=== PATIENT | female | born 1935 | race Caucasian/White ===

== ENCOUNTER 2016-09-08 14:31 | Inpatient (IN) ==
[2016-09-08] MEDS ORDERED: SODIUM CHLORIDE 0.9% 500 ML IV STA (14:58)
--- NOTE | 2016-09-08 15:13 | CT Report ---
CT brain Indication: Altered mental status Comparison: 08 September 2014 Technique: Axial CT imaging of the brain is performed without contrast with 3 mm increments. Findings: No evidence of hemorrhage, mass mass effect midline shift or acute infarct seen. There is moderate diffuse cerebral atrophy. There are areas of decreased density seen within the white matter. Otherwise the brain parenchyma attenuation and differentiation appears within normal limits. The ventricles and cisterns are normal in caliber. No cranial or skull base abnormality is identified. Impression: No evidence of acute process or interval change. This CT exam was performed using one or more the following dose reduction techniques: Automated exposure control, adjustment of the MA and/or KV according to patient size, or use of iterative reconstruction technique. PROCEDURE INTERPRETED AT [facility] DEPARTMENT OF RADIOLOGY Final Report Signed by: Dr. Krystian Fuentes
--- NOTE | 2016-09-08 15:17 | Emergency Department Note ---
Julieth Faulkner Mantricia, am scribing for, and in the presence of, Al Osborn MD 14:56. Irena Faulkner James D, MD, personally performed the services described in this documentation, ascribed by Pedro Clancy in my presence, and it is both accurate and complete 515 . Arrival - Arrival Chief Complaint: Weakness Stated Complaint: confusion, weakness, excess sleepiness ED Nursing Triage Note: c/o intermittent confusion and generalized weakness- onset two days ago. Mode of Arrival: Wheelchair Limitations: No Limitations Source: Patient - History of Present Illness HPI Narrative: Pt is an 80 y/o white female arriving to ED by EMS with c/o weakness that onset 2 days ago. Pt reports that she fell asleep at the table yesterday. She c/o lethargy, sleepiness, and confusion. Daughter reports that pt has stated that "she is going to see Yosef." Pt has a PMHx of Parkinson's disease and recurring UTIs. No other complaints were reported to ED. Onset (ago): day(s) Consistency: constant Severity: mild Date of Last Menstrual Period: menopause Allergies/Adverse Reactions: Allergies Allergy/AdvReac Type Severity Reaction Status Date / Time ciprofloxacin [From Cipro] Allergy Unknown/Unable Verified 12/21/14 22:37 to obtain escitalopram [From Lexapro] AdvReac RASH Verified 12/21/14 22:37 Home Medications: Home Medications Medication Instructions Recorded Confirmed Type Digoxin Tab [Lanoxin Tab] 0[place] [address]/07/14 09/08/16 History Flecainide [Tambocor] 50 mg PO BID 09/07/14 09/08/16 History Meloxicam [Mobic] 7.5 [place] 79909/07/14 09/08/16 History Tamoxifen Citrate [place] [address]/07/14 09/08/16 History Carbidopa/Levodopa 25-100 [Sinemet 2 tablet PO 199909/08/16 09/08/16 History 25-100] Carbidopa/Levodopa [Rytary 1 capsule PO 5X DAILY 09/08/16 09/08/16 History 23.75-95 mg] Rotigotine [Neupro 6 mg/24 hr 1 patch TOP 79909/08/16 09/08/16 History Patch] prednisoLONE AC 1% OPH SUSP [Pred 1 drop BOTH EYES QOTHER DAY 09/08/16 09/08/16 History Forte] Review of System - Review of System 12 point system: reviewed and no additional remarkable complaints except as stated - Review of System Constitutional: Present: weakness. Absent: chills, diaphoresis, fever Head/Ears/Nose/Throat: Absent: earache Respiratory: Absent: cough Gastrointestinal: Absent: abdominal pain, nausea, vomiting, diarrhea Musculoskeletal: Absent: arm pain, back pain, leg pain, neck pain Neurological: Present: confusion. Absent: headache Medical,Surgical,& Family Hx - Medical History Cardio: History of: Cardiac Dysrhythmia (sick sinus syndrome and atrial fibrillation), Hypertension, Pacemaker Psychological: History of: Anxiety Disorders Neurology: History of: Parkinson's Disease (2007) No history of: Brain Aneurysm, Cerebral Hemorrhage, Cerebrovascular Accident , Cerebral Palsy, Dementia, Migraine, Multiple Sclerosis, Peripheral Neuropathy , Seizures, TIA, Vertigo, Neurologocal Cancer HEENT: History of: Eye Problem Gastrointestinal: History of: GI Problems (constipation) No history of: Clostridium Difficile, Crohn's Disease Musculoskeletal: History of: Musculoskeletal Problems (arthritis) Hematology: Comment Only: Bleeding Problems (bruises easy) Reproductive: History of: Breast Cancer (1999) - Surgical History Cardiac Surgeries: Sugical HX of: Cardiac Surgery (pacemaker placed 1987) Thoracic Surgeries: Patient denies;: Lobectomy Neurologic Surgeries: Patient denies: Brain Aneurysm, Cerebral Hemorrhage, Neurologic Surgery HEENT Surgeries: Surgical HX of: Eye Surgery (corneal transplants) Abdominal Surgeries: Surgical HX of: Colonoscopy Reproductive Surgeries: Surgical HX of;: Breast Surgery (left lumpectomy 2010) Orthopedic Surgeries: Surgical HX of;: Orthopedic Surgery (left knee repair) - Family History Family History: Reports;: Family Cancer (sister x's 2- breast), Family Diabetes (mother), Family Heart Disease (father, sister, brother), Family Hypertension ( mother), Family Psychiatric Problems (brother- schizophrenia) Denies;: Family Anesthesia Reaction, Family Stroke - Social History Smoking Status: Former smoker Frequency of Alcohol Use: None Type of Drug Use: None Exam Physical Examination: ADULT: GENERAL: This is a well-nourished, well-developed white female in no apparent distress. VITAL SIGNS: Reviewed HEENT: Head is normocephalic and atraumatic. Pupils are equally round and reactive to light. Extraocular movement are intact. Oropharynx is benign with moist mucous membranes. NECK: Neck is soft and supple without tenderness. There are no masses. There is no lymphadenopathy. LUNGS: Lungs are clear to auscultation bilaterally. Chest rises symmetrically. There is no chest wall tenderness. CV: Heart is regular rate and rhythm without murmurs, rubs, or gallops. ABDOMEN: Abdomen is soft, non-tender to palpation. There are no abnormal masses palpated. There is no organomegaly. Bowel sounds are present and active. SKIN: Skin is warm and dry. No rash. EXTREMITIES: Patient has full range of motion without tenderness. There is no pedal edema. NEUROLOGIC: Awake, alert, and oriented x4. Masked facies. Cranial nerves II through XII are grossly intact. There are no motorsensory deficits. Some cogwheeling is present. PSYCHIATRIC: Flat affect. Normal mood. Vital Signs: Vital Signs Temperature 98.2 F 09/08/16 15:00 Pulse Rate 74 09/08/16 15:30 Respiratory Rate 16 09/08/16 15:30 Blood Pressure 155/82 09/08/16 15:30 O2 Sat by Pulse Oximetry 100 09/08/16 15:30 Course Course Narrative: Patient was given Rocephin IV in the emergency department. - Consultations Consultation #1: Discussed with hospitalist. Patient will be admitted to their service. Time: 16:42 Results - Labs CBC & BMP: 09/08/16 15:33 09/08/16 15:33 Lab Results: I have reviewed the patients labs Labs: Laboratory Tests 09/08/16 15:36 Urine pH 6.0 Ur Specific [place] 1.011 Urine Leukocytes Moderate H Urine RBC 3 Urine WBC 39 - Diagnostic Findings Procedure: Chest x-ray: image reviewed by me (Dual-chamber pacemaker in place. No cardiomegaly, positive scoliosis, no infiltrate.), CT: image reviewed by me ( CT head: No acute intracranial lesion or hemorrhage. Cerebral atrophy is present.) Disposition Clinical Impression: Parkinsons disease, Altered mental status, Urinary tract infection Case discussed with: patient, patient's family Disposition: Still a Patient Condition: Stable Time of Disposition: 16:39
--- NOTE | 2016-09-08 15:26 | XRay Report ---
XR chest 2V Indication: Altered mental status Comparison: 21 December 2014 Findings: The heart and mediastinum are normal in size and configuration. Pacemaker device is unchanged in position. The pulmonary vascularity is normal in caliber. Lung volumes are increased with prominent bronchial markings. No lung infiltrates, effusions, pneumothorax or other abnormality is demonstrated. Impression: Chronic lung changes. No acute process or significant change. PROCEDURE INTERPRETED AT [facility] DEPARTMENT OF RADIOLOGY Final Report Signed by: Dr. Krystian Fuentes
[2016-09-08 15:46] LABS: Basophils % 0.3 % (0.0-0.8); Eosinophils # 0.1 10*3/uL (0.0-0.87); Eosinophils % 0.7 % (0.00-10.9); Hematocrit 37.1 VOL% (35.7-47.0); Hemoglobin 12.3 GM/DL (12.0-16.0); Immature Granulocytes % 0.3 %; Immature Granulocytes Absolute 0.02 #; Lymphocytes % 14.9 % (21.3-54.2); Mean Corpuscular HGB Conc 33.2 GM/DL (32-36); Mean Corpuscular Hemoglobin 31 PG (27-34); Mean Corpuscular Volume 93.9 FL (87-102); Mean Platelet Volume 11.6 FL (9.6-12.0); Monocytes # 0.7 10*3/uL (0.11-0.8); Monocytes % 9.5 % (1.7-12.7); Neutrophils # 5.1 10*3/uL (1.4-7.4); Neutrophils % 74.3 % (38.7-73.9); Platelet Count 187 T/CUMM (130-400); Red Blood Count 3.95 MC/CUMM (3.8-5.5); Red Cell Distribution Width 12.9 % (9.3-17.3); White Blood Count 6.9 T/CUMM (4-12)
[2016-09-08 15:56] LABS: INR 1.1; PT Patient Result 11.4 SECS; Partial Thromboplastin Time 25.6 SECS (0-40)
[2016-09-08 16:12] LABS: Ammonia < 10 UMOL/L (11-32)
[2016-09-08 16:13] LABS: Apearance,Urine Slightly Hazy (Clear); Bacteria,Urine Occasional /HPF (Few); Bilirubin,Urine Negative (Negative); Blood, Urine Negative (Negative); Glucose,Urine (UA) Negative (Negative); Ketones,Urine 5 mg/dL (Negative); Mucus,Urine Occasional /LPF (Occasional); Nitrite,Urine Negative (Negative); Protein,Urine Negative; RBC,Urine 3 /HPF (0-4); Squamous Epithelial Cell,Urine Occasional /HPF (0-10); Urine Color Yellow (Yellow); Urine Specific Gravity 1.011 (1.001-1.035); Urine Urobilinogen < 2.0 EU/DL (0.2-1.0); WBC,Urine 39 /HPF (0-6)
[2016-09-08 16:21] LABS: Alanine Aminotransferase < 9 U/L (13-56); Albumin 3.5 G/DL (3.4-5.0); Alkaline Phosphatase 39 U/L (45-117); Aspartate Amino Transferase 18 U/L (0-37); Bilirubin,Total < 0.39 MG/DL (0.2-1.0); Blood Urea Nitrogen 25 MG/DL (7-18); Calcium 8.4 MG/DL (8.5-10.1); Glucose 106 MG/DL (74-106); Osmolality,Calculated 280.5 MOS/KG (273-304); Potassium 4.6 MMOL/L (3.5-5.1); Sodium 139 MMOL/L (136-145); Total Protein 7.2 G/DL (6.4-8.3)
[2016-09-08] MEDS ORDERED: cefTRIAXone 1,000 MG in SODIUM CHLORIDE 0.9% 100 ML IV STA (16:39)
[2016-09-08] MEDS ORDERED: cefTRIAXone 1,000 MG VIAL ONE ×2 (16:52→18:03)
--- NOTE | 2016-09-08 17:30 | Hospitalist History & Physical ---
Assessment and Plan - Time spent with patient Time spent with patient: Greater than 30 minutes (1) Altered mental status Status: Acute Assessment and plan: Patient answered questions appropriately. Family said she gets confused during conversations. Patient is alert and oriented to person and place. Head CT in the ER shows no evidence of acute process or interval change. Will monitor closely. Will admit and repeat labs in the morning. Current Visit: Yes (2) Urinary tract infection Status: Acute Assessment and plan: 09/08/16 BUN 25 and creatinine 1.00; URINE: show moderate leukocytes, WBC 39. Will start IV fluids and start antibiotic therapy for UTI. Will repeat labs in the a.m. Current Visit: Yes (3) Weakness Status: Acute Assessment and plan: 09/08/16 Patient has history of Parkinsons disease. Family feels she has been a little more sluggish today but her weakness has not changed significantly. Will monitor closely. Will consult PT and OT for evaluation. Current Visit: No History of Present Illness Chief complaint: weakness/confusion/UTI History of present illness: Ms. Huntley is a 80 year old white female presented to [facility] ED for c/ o confusion x 2days, and not feeling "right". PMHx: Parkinsons disease, Sick Sinus syndrome and atrial fibrillation, Pacemaker, Hypertension, anxiety disorder, arthritis. Patient verbalized "I just have not felt good and I don't feel like myself". Family reports for the past 2 days patient is confused and in conversation she says things that do not make sense, also the patient has been crying a lot and keeps telling them "something is wrong but I'm not sure what's wrong". Family reports she is slightly more sluggish than normal today but she is alwasy generally weak related to her Parkinsons disease. After discussion with Dr Osborn in the ED and Dr Kline with hospital medicine, it was agreed to admit patient for further evaluation. Home medications will be reviewed and reconciliation to follow. Home Medications Medication Instructions Recorded Confirmed Type Digoxin Tab [Lanoxin Tab] 0.125 mg PO 0800 09/07/14 09/08/16 History Flecainide [Tambocor] 50 mg PO BID 09/07/14 09/08/16 History Meloxicam [Mobic] 7.5 [place] 79909/07/14 09/08/16 History Tamoxifen Citrate [place] 79909/07/14 09/08/16 History Carbidopa/Levodopa 25-100 [Sinemet 2 tablet PO 199909/08/16 09/08/16 History 25-100] Carbidopa/Levodopa [Rytary 1 capsule PO 5X DAILY 09/08/16 09/08/16 History 23.75-95 mg] Rotigotine [Neupro 6 mg/24 hr 1 patch TOP 79909/08/16 09/08/16 History Patch] prednisoLONE AC 1% OPH SUSP [Pred 1 drop BOTH EYES QOTHER DAY 09/08/16 09/08/16 History Forte] Allergies Allergy/AdvReac Type Severity Reaction Status Date / Time ciprofloxacin [From Cipro] Allergy Unknown/Unable Verified 12/21/14 22:37 to obtain escitalopram [From Lexapro] AdvReac RASH Verified 12/21/14 22:37 Medical,Surgical,& Family Hx - Medical History Cardio: History of: Cardiac Dysrhythmia (sick sinus syndrome and atrial fibrillation), Hypertension, Pacemaker Psychological: History of: Anxiety Disorders Neurology: History of: Parkinson's Disease (2007) No history of: Brain Aneurysm, Cerebral Hemorrhage, Cerebrovascular Accident , Cerebral Palsy, Dementia, Migraine, Multiple Sclerosis, Peripheral Neuropathy , Seizures, TIA, Vertigo, Neurologocal Cancer HEENT: History of: Eye Problem Gastrointestinal: History of: GI Problems (constipation) No history of: Clostridium Difficile, Crohn's Disease Musculoskeletal: History of: Musculoskeletal Problems (arthritis) Hematology: Comment Only: Bleeding Problems (bruises easy) Reproductive: History of: Breast Cancer (1999) - Surgical History Cardiac Surgeries: Sugical HX of: Cardiac Surgery (pacemaker placed 1987) Thoracic Surgeries: Patient denies;: Lobectomy Neurologic Surgeries: Patient denies: Brain Aneurysm, Cerebral Hemorrhage, Neurologic Surgery HEENT Surgeries: Surgical HX of: Eye Surgery (corneal transplants) Abdominal Surgeries: Surgical HX of: Colonoscopy Reproductive Surgeries: Surgical HX of;: Breast Surgery (left lumpectomy 2010) Orthopedic Surgeries: Surgical HX of;: Orthopedic Surgery (left knee repair) - Family History Family History: Reports;: Family Cancer (sister x's 2- breast), Family Diabetes (mother), Family Heart Disease (father, sister, brother), Family Hypertension ( mother), Family Psychiatric Problems (brother- schizophrenia) Denies;: Family Anesthesia Reaction, Family Stroke - Social History Smoking Status: Former smoker Frequency of Alcohol Use: None Type of Drug Use: None Functional capacity: uses cane/walker Review of systems: ROS sompleted and pertinent positives and negatives in HPI. Exam - Constitutional Vitals: Period Temp Pulse Resp BP Sys/Galeas Pulse Ox Last 24 Hr 98.2 F-98.2 F 74-76 14-18 122-155/67-82 98-100 General appearance: normal weight - Head Head exam: Present: normal inspection - Eye Eye exam: Present: EOMI - Neck Neck exam: Present: normal inspection - Respiratory Respiratory exam: Present: clear to auscultation bilaterally. Absent: wheezes - Cardiovascular Cardiovascular exam: Present: regular rate and rhythm - GI/Abdominal GI/Abdominal exam: Present: normal bowel sounds, soft. Absent: tenderness, rebound - Extremities Exam Extremities exam: Present: full ROM. Absent: edema - Neurological Exam Neurological exam: Present: alert, oriented X3, CN II-XII intact - Psychiatric Psychiatric exam: Present: normal mood, flat affect. Absent: agitated, anxious - Skin Skin exam: Present: normal color, warm, dry Results - Labs CBC & BMP: 09/08/16 15:33 09/08/16 15:33 Lab Results: I have reviewed the past 24 hour labs - Diagnostic Findings Procedure: Chest x-ray: report reviewed by me (chronic lung changes, no acute process or significant change), CT: report reviewed by me (head: no evidence of acute process or interval change)
[2016-09-08] MEDS ORDERED: ACETAMINOPHEN 325 MG TABLET PO PRN (18:08)
[2016-09-08] MEDS ORDERED: ONDANSETRON 4 MG/2 ML VIAL IV PRN (18:08)
[2016-09-08] MEDS ORDERED: BISACODYL 5 MG TABLET PO PRN (18:08)
[2016-09-08] MEDS: SODIUM CHLORIDE 0.9% 1,000 ML IV SCH (21:19)
[2016-09-08] MEDS ORDERED: CARBIDOPA PO SCH (22:00)
[2016-09-08] MEDS ORDERED: LEVODOPA PO SCH (22:00)
[2016-09-08] MEDS: FLECAINIDE 50 MG TABLET PO SCH (22:21)
[2016-09-09] MEDS: SODIUM CHLORIDE 0.9% 1,000 ML IV SCH ×3 (05:07→20:22)
[2016-09-09 06:03] LABS: Basophils % 0.5 % (0.0-0.8); Eosinophils # 0.1 10*3/uL (0.0-0.87); Eosinophils % 2.1 % (0.00-10.9); Hemoglobin 10.9 GM/DL (12.0-16.0); Immature Granulocytes % 0.5 %; Immature Granulocytes Absolute 0.03 #; Lymphocytes # 1.2 10*3/uL (1.4-4.0); Lymphocytes % 21.2 % (21.3-54.2); Mean Corpuscular Hemoglobin 31 PG (27-34); Mean Corpuscular Volume 94.3 FL (87-102); Mean Platelet Volume 11.8 FL (9.6-12.0); Monocytes # 0.6 10*3/uL (0.11-0.8); Monocytes % 10.5 % (1.7-12.7); Neutrophils # 3.8 10*3/uL (1.4-7.4); Neutrophils % 65.2 % (38.7-73.9); Platelet Count 150 T/CUMM (130-400); Red Cell Distribution Width 12.9 % (9.3-17.3); White Blood Count 5.8 T/CUMM (4-12)
[2016-09-09 06:36] LABS: Calcium 7.6 MG/DL (8.5-10.1); Magnesium 2.3 MG/DL (1.8-2.4); Osmolality,Calculated 280.3 MOS/KG (273-304); Potassium 4.1 MMOL/L (3.5-5.1)
[2016-09-09] MEDS ORDERED: PANTOPRAZOLE 40 MG TABLET PO SCH (09:00)
[2016-09-09] MEDS ORDERED: TAMOXIFEN 10 MG TABLET PO SCH (09:00)
[2016-09-09] MEDS: FLECAINIDE 50 MG TABLET PO SCH (09:13)
[2016-09-09] MEDS ORDERED: DIGOXIN 0.125 MG TABLET PO SCH (13:00)
--- NOTE | 2016-09-09 14:38 | Discharge Summary ---
Hospital Course - Hospital Course Hospital Course: The patient was admitted to the hospital due to dysphoria and change of personality. The patient had been noted to have more sleeping than usual. Her neurologist at [facility] had recommended evaluation for infection. The patient was admitted to the hospital. Urinalysis reveals some pyuria and we treated it with Rocephin. The patient will be discharged home with Keflex. The patient will return to [facility] and resume taking her usual neurologic medications. The patient will have reevaluation with her neurologist at [facility] next week. I reviewed the patient's treatment plan and plan of care with her daughter at the bedside. The patient appears more cheerful today and her daughter states she seems back to baseline. The patient was screened for tobacco and found to be a never smoker. I gave her 4 minutes encouragement of tobacco avoidance. Discharge planning which included evaluation the patient and patient teaching and conference with family required 36 minutes. - Time spent with patient Time with patient DS: Greater than 30 minutes Diagnosis - Discharge Diagnosis (1) Parkinsons disease Status: Chronic (2) Urinary tract infection Status: Resolved Discharge Plan - Discharge Data Disposition: Disch To Home/Self Care Condition at Discharge: Stable Discharge Diet: advance to your usual diet Activity: resume usual activities as tolerated - Discharge Medications New cephALEXin [Keflex] 250 mg PO TID #12 capsule Continue Flecainide [Tambocor] 50 mg PO BID Digoxin Tab [Lanoxin Tab] 0.125 mg PO 0800 Tamoxifen Citrate 20 mg PO 0800 Meloxicam [Mobic] 7.5 mg PO 0800 Carbidopa/Levodopa 25-100 [Sinemet 25-100] 2 tablet PO 2000 prednisoLONE AC 1% OPH SUSP [Pred Forte] 1 drop BOTH EYES QOTHER DAY Carbidopa/Levodopa [Rytary 23.75-95 mg] 1 capsule PO 5X DAILY Rotigotine [Neupro 6 mg/24 hr Patch] 1 patch TOP 0800 - Follow Up or Referral - Forms/Instructions Exam - Constitutional Vitals: Period Temp Pulse Resp BP Sys/Galeas Pulse Ox Last 24 Hr 97.1 F-98.2 F 68-80 14-18 122-188/67-103 92-100 Discharge Results Procedures and tests throughout hospitalization: Pending Orders 09/08/16 Urine Culture Routine Labs on day of discharge: Labs from last 24 hours 0709/09/16 09/08/16 05:03 05:03 15:36 WBC 5.8 RBC 3.50 L Hgb 10.9 L Hct 33.0 L MCV 94.3 MCH 31 MCHC 33.0 RDW 12.9 Plt Count 150 MPV 11.8 Neut % (Auto) 65.2 Lymph % (Auto) 21.2 L Riley % (Auto) 10.5 Eos % (Auto) 2.1 Baso % (Auto) 0.5 Neut # (Auto) 3.8 Lymph # (Auto) 1.2 L Riley # (Auto) 0.6 Eos # (Auto) 0.1 Baso # (Auto) 0.0 Immature Gran % 0.5 Nucleated RBC % 0.0 Immature Gran # 0.03 Nucleated RBCs # 0.00 Immature Plt Fraction 0.0 INR PT Patient/Control Mix Circ Anticoag PTT Sodium 141 Potassium 4.1 Chloride 107 Carbon Dioxide 29 Anion Gap 9.1 BUN 16 Creatinine 0.60 GFR Calculation 75 BUN/Creatinine Ratio 26.00 H Glucose 84 Calculated Osmolality 280.3 Calcium 7.6 L Magnesium 2.3 Total Bilirubin AST ALT Alkaline Phosphatase Ammonia Total Protein Albumin Globulin Albumin/Globulin Ratio Urine Color Yellow Urine Appearance Slightly hazy Urine pH 6.0 Ur Specific [employer] [place] 1.011 Urine Protein Negative Urine Glucose (UA) Negative Urine Ketones 5 Urine Blood Negative Urine Nitrate Negative Urine Bilirubin Negative Urine Urobilinogen < 2.0 H Urine Leukocytes Moderate H Urine RBC 3 Urine WBC 39 Ur Squamous Epith Cells Occasional Urine Bacteria Occasional Urine Mucus Occasional Ur Culture Indicated? Results to follow Digoxin Serum Alcohol 09/08/16 09/08/16 09/08/16 15:33 15:33 15:33 WBC RBC Hgb Hct MCV MCH MCHC RDW Plt Count MPV Neut % (Auto) Lymph % (Auto) Riley % (Auto) Eos % (Auto) Baso % (Auto) Neut # (Auto) Lymph # (Auto) Riley # (Auto) Eos # (Auto) Baso # (Auto) Immature Gran % Nucleated RBC % Immature Gran # Nucleated RBCs # Immature Plt Fraction INR 1.1 PT Patient/Control Mix 11.4 Circ Anticoag PTT 25.6 Sodium 139 Potassium 4.6 Chloride 103 Carbon Dioxide 30 Anion Gap 10.6 BUN 25 H Creatinine 1.00 GFR Calculation 44 BUN/Creatinine Ratio 25.00 H Glucose 106 Calculated Osmolality 280.5 Calcium 8.4 L Magnesium Total Bilirubin < 0.39 AST 18 ALT < 9 L Alkaline Phosphatase 39 L Ammonia < 10 L Total Protein 7.2 Albumin 3.5 Globulin 3.7 H Albumin/Globulin Ratio 0.9 L Urine Color Urine Appearance Urine pH Ur Specific [employer] Urine Protein Urine Glucose (UA) Urine Ketones Urine Blood Urine Nitrate Urine Bilirubin Urine Urobilinogen Urine Leukocytes Urine RBC Urine WBC Ur Squamous Epith Cells Urine Bacteria Urine Mucus Ur Culture Indicated? Digoxin 1.10 Serum Alcohol < 15 L 09/08/16 15:33 WBC 6.9 RBC 3.95 Hgb 12.3 Hct 37.1 MCV 93.9 MCH 31 MCHC 33.2 RDW 12.9 Plt Count 187 MPV 11.6 Neut % (Auto) 74.3 H Lymph % (Auto) 14.9 L Riley % (Auto) 9.5 Eos % (Auto) 0.7 Baso % (Auto) 0.3 Neut # (Auto) 5.1 Lymph # (Auto) 1.0 L Riley # (Auto) 0.7 Eos # (Auto) 0.1 Baso # (Auto) 0.0 Immature Gran % 0.3 Nucleated RBC % 0.0 Immature Gran # 0.02 Nucleated RBCs # 0.00 Immature Plt Fraction 0.0 INR PT Patient/Control Mix Circ Anticoag PTT Sodium Potassium Chloride Carbon Dioxide Anion Gap BUN Creatinine GFR Calculation BUN/Creatinine Ratio Glucose Calculated Osmolality Calcium Magnesium Total Bilirubin AST ALT Alkaline Phosphatase Ammonia Total Protein Albumin Globulin Albumin/Globulin Ratio Urine Color Urine Appearance Urine pH Ur Specific [employer] Urine Protein Urine Glucose (UA) Urine Ketones Urine Blood Urine Nitrate Urine Bilirubin Urine Urobilinogen Urine Leukocytes Urine RBC Urine WBC Ur Squamous Epith Cells Urine Bacteria Urine Mucus Ur Culture Indicated? Digoxin Serum Alcohol Preliminary micro results at discharge 09/08/16 Unknown Urine Culture - Preliminary Urine,Catheterized No Growth at 12 hours. DS: Provider Date of admission: 09/08/16 17:19 Primary care physician: . No PCP Attending physician on admission: Amy Vega MD Consults: 09/08/16 18:10 Consult to Case Mgmt/Social Srvs [CONS] Routine Reason for Case Mgmt/Social Srvs: Discharge Planning Consult to Occupational Therapy [CONS] Routine Reason for Occupational Therapy: Evaluate and Treat Consult to Physical Therapy [CONS] Routine Reason for Physical Therapy: Evaluate and Treat 09/08/16 19:25 Consult to Pastoral Services [CONS] Routine Comment: Pastoral Screen: Declines Visit Pastoral Screen Source of Request: Patient Discharging clinician: Matty Kline MD
[2016-09-09] MEDS ORDERED: CARBIDOPA/LEVODOPA 25-100 MG TABLET PO SCH (20:00)
[2016-09-09 20:18] VITALS: BP 158/90
[2016-09-10] MEDS ORDERED: ROTIGOTINE TOP SCH (08:00)
[2016-09-10] MEDS ORDERED: prednisoLONE ACETATE 1% OPH SUSP 5 ML BOTTLE BOTH EYES SCH (09:00)
== END 2016-09-09 16:05 | disposition home or self-care (01) | DRG 690 ==
LOC: N.ED 14:31 → SUATTDRO 17:19 → N.EDINP 17:19 → N.5E 19:24
PROVIDERS: ADMIT Internal Medicine; ATTEND Internal Medicine

== ENCOUNTER 2018-10-24 22:10 | Inpatient (IN) ==
[2018-10-24] MEDS ORDERED: SODIUM CHLORIDE 0.9% 500 ML IV STA (22:36)
[2018-10-24] MEDS ORDERED: DIPH/TET/ACEL PERT BOOSTER VACCINE 0.5 ML VIAL IM ONE (22:36)
[2018-10-24] MEDS ORDERED: ONDANSETRON 4 MG/2 ML VIAL IV STA (22:36)
[2018-10-24] MEDS ORDERED: LIDOCAINE/EPINEPHR/TETRACAINE 3 ML SYRINGE TOP STA (22:37)
[2018-10-24 22:46] LABS: Basophils % 0.4 % (0.0-0.8); Hematocrit 38.8 VOL% (35.7-47.0); Hemoglobin 12.3 GM/DL (12.0-16.0); Immature Granulocytes % 1.3 %; Immature Granulocytes Absolute 0.09 #; Lymphocytes # 0.6 10*3/uL (1.4-4.0); Lymphocytes % 8.8 % (21.3-54.2); Mean Corpuscular HGB Conc 31.7 GM/DL (32-36); Mean Corpuscular Volume 98.2 FL (87-102); Mean Platelet Volume 11.3 FL (9.6-12.0); Monocytes % 9.9 % (1.7-12.7); Neutrophils % 79.6 % (38.7-73.9); Platelet Count 137 T/CUMM (130-400); Red Blood Count 3.95 MC/CUMM (3.8-5.5)
[2018-10-24] MEDS ORDERED: hydrALAZINE 20 MG/1 ML VIAL IV STA ×2 (22:48→23:45)
[2018-10-24 23:19] LABS: Albumin 3.5 G/DL (3.4-5.0); Bilirubin,Total 0.5 MG/DL (0.2-1.0); Calcium 8.8 MG/DL (8.5-10.1); Osmolality,Calculated 283.7 MOS/KG (273-304); Total Protein 7.6 G/DL (6.4-8.3)
[2018-10-25 00:23] LABS: Apearance,Urine CLEAR (Clear); Bacteria,Urine Few /HPF (Few); Bilirubin,Urine Negative (Negative); Blood, Urine Small mg/dL (Negative); Glucose,Urine (UA) Negative (Negative); Hyaline Casts,Urine 1 /LPF (0-3); Ketones,Urine 5 mg/dL (Negative); Mucus,Urine Occasional /LPF (Occasional); Nitrite,Urine Negative (Negative); Protein,Urine Negative; RBC,Urine 6 /HPF (0-4); Renal Epithelial Cells,Urine Occasional /HPF (<1); Urine Color Yellow (Yellow); Urine Specific Gravity 1.013 (1.001-1.035); Urine Urobilinogen < 2.0 EU/DL (0.2-1.0); WBC,Urine 42 /HPF (0-6)
[2018-10-25] MEDS ORDERED: ONDANSETRON 4 MG/2 ML VIAL IV PRN (02:13)
[2018-10-25] MEDS: SODIUM CHLORIDE 0.9% 1,000 ML IV SCH ×2 (02:43→23:42)
[2018-10-25] MEDS: cefTRIAXone 1,000 MG in SYRINGE 1 EACH IV SCH (02:50)
[2018-10-25 06:03] LABS: Basophils % 0.3 % (0.0-0.8); Hematocrit 36.4 VOL% (35.7-47.0); Hemoglobin 11.3 GM/DL (12.0-16.0); Immature Granulocytes % 0.7 %; Immature Granulocytes Absolute 0.05 #; Lymphocytes # 0.8 10*3/uL (1.4-4.0); Lymphocytes % 10.9 % (21.3-54.2); Mean Corpuscular Volume 98.9 FL (87-102); Mean Platelet Volume 11.4 FL (9.6-12.0); Monocytes % 8.3 % (1.7-12.7); Neutrophils % 79.8 % (38.7-73.9); Platelet Count 137 T/CUMM (130-400); Red Blood Count 3.68 MC/CUMM (3.8-5.5); Red Cell Distribution Width 14.1 % (9.3-17.3); White Blood Count 7.5 T/CUMM (4-12)
[2018-10-25 06:22] LABS: Albumin 3.1 G/DL (3.4-5.0); Bilirubin,Total 0.9 MG/DL (0.2-1.0); Calcium 8.5 MG/DL (8.5-10.1); Osmolality,Calculated 284.4 MOS/KG (273-304); Total Protein 7.2 G/DL (6.4-8.3)
[2018-10-25] MEDS: CARBIDOPA/LEVODOPA 25-100 MG TABLET PO SCH ×6 (07:00→17:45)
[2018-10-25] MEDS: PANTOPRAZOLE 40 MG TABLET PO SCH (08:41)
[2018-10-25] MEDS: FUROSEMIDE 20 MG TABLET PO SCH (08:41)
[2018-10-25] MEDS: MELOXICAM 7.5 MG TABLET PO SCH (08:42)
[2018-10-25] MEDS: DIGOXIN 0.125 MG TABLET PO SCH (08:42)
[2018-10-25] MEDS: TAMOXIFEN 10 MG TABLET PO SCH (08:43)
[2018-10-25] MEDS: FLECAINIDE 50 MG TABLET PO SCH ×2 (08:43→22:08)
[2018-10-25] MEDS: prednisoLONE ACETATE 1% OPH SUSP 5 ML BOTTLE BOTH EYES SCH (08:43)
[2018-10-25] MEDS: DOCUSATE SODIUM 100 MG CAPSULE PO SCH ×2 (08:46→22:09)
[2018-10-25] MEDS: METHENAMINE HIPPURATE 1 GM TABLET PO SCH ×2 (08:46→22:09)
[2018-10-25] MEDS ORDERED: DENOSUMAB 60 MG/ML SYRINGE SUBCUT SCH (10:00)
[2018-10-25] MEDS ORDERED: BISACODYL 10 MG SUPP RECTAL ONE (13:30)
[2018-10-25] MEDS ORDERED: TUBERCULIN SKIN TEST 0.1 ML SYRINGE INTRADERM ONE (14:00)
[2018-10-25] MEDS: NEUPRO 8 MG/24 HR TOP SCH (18:23)
[2018-10-25] MEDS: CARBIDOPA/LEVODOPA CR 25-100 MG TABLET PO SCH (22:09)
[2018-10-26] MEDS: SODIUM CHLORIDE 0.9% 1,000 ML IV SCH ×2 (04:00→15:00)
[2018-10-26] MEDS: CARBIDOPA/LEVODOPA 25-100 MG TABLET PO SCH ×6 (06:13→18:15)
[2018-10-26] MEDS: DIGOXIN 0.125 MG TABLET PO SCH (08:59)
[2018-10-26] MEDS: cefTRIAXone 1,000 MG in SYRINGE 1 EACH IV SCH (08:59)
[2018-10-26] MEDS: FUROSEMIDE 20 MG TABLET PO SCH (09:01)
[2018-10-26] MEDS: METHENAMINE HIPPURATE 1 GM TABLET PO SCH ×2 (09:02→20:26)
[2018-10-26] MEDS: MELOXICAM 7.5 MG TABLET PO SCH (09:02)
[2018-10-26] MEDS: DOCUSATE SODIUM 100 MG CAPSULE PO SCH ×2 (09:02→20:26)
[2018-10-26] MEDS: TAMOXIFEN 10 MG TABLET PO SCH (09:03)
[2018-10-26] MEDS: PANTOPRAZOLE 40 MG TABLET PO SCH (09:03)
[2018-10-26] MEDS: FLECAINIDE 50 MG TABLET PO SCH ×2 (09:04→20:25)
[2018-10-26] MEDS: NEUPRO 8 MG/24 HR TOP SCH (09:07)
[2018-10-26] MEDS: TAMSULOSIN 0.4 MG CAPSULE PO SCH (09:08)
[2018-10-26] MEDS: CARBIDOPA/LEVODOPA CR 25-100 MG TABLET PO SCH (20:26)
[2018-10-27] MEDS: SODIUM CHLORIDE 0.9% 1,000 ML IV SCH (04:30)
[2018-10-27] MEDS: CARBIDOPA/LEVODOPA 25-100 MG TABLET PO SCH ×5 (06:44→18:23)
[2018-10-27] MEDS: NEUPRO 8 MG/24 HR TOP SCH (08:59)
[2018-10-27] MEDS: cefTRIAXone 1,000 MG in SYRINGE 1 EACH IV SCH (09:00)
[2018-10-27] MEDS: prednisoLONE ACETATE 1% OPH SUSP 5 ML BOTTLE BOTH EYES SCH (09:00)
[2018-10-27] MEDS: TAMOXIFEN 10 MG TABLET PO SCH (09:01)
[2018-10-27] MEDS: FLECAINIDE 50 MG TABLET PO SCH ×2 (09:01→20:45)
[2018-10-27] MEDS: MELOXICAM 7.5 MG TABLET PO SCH (09:01)
[2018-10-27] MEDS: DOCUSATE SODIUM 100 MG CAPSULE PO SCH ×2 (09:01→20:45)
[2018-10-27] MEDS: DIGOXIN 0.125 MG TABLET PO SCH (09:01)
[2018-10-27] MEDS: FUROSEMIDE 20 MG TABLET PO SCH (09:02)
[2018-10-27] MEDS: TAMSULOSIN 0.4 MG CAPSULE PO SCH (09:02)
[2018-10-27] MEDS: METHENAMINE HIPPURATE 1 GM TABLET PO SCH ×2 (09:02→20:45)
[2018-10-27] MEDS: PANTOPRAZOLE 40 MG TABLET PO SCH (09:02)
[2018-10-27] MEDS ORDERED: ALBUTEROL/IPRATROPIUM 3 ML NEB RESP TX ONE (10:04)
[2018-10-27] MEDS: MEROPENEM 1,000 MG in SODIUM CHLORIDE 0.9% 100 ML IV SCH (15:23)
[2018-10-27] MEDS: CARBIDOPA/LEVODOPA CR 25-100 MG TABLET PO SCH (20:44)
[2018-10-28] MEDS: MEROPENEM 1,000 MG in SODIUM CHLORIDE 0.9% 100 ML IV SCH ×2 (02:10→15:48)
[2018-10-28] MEDS: ALBUTEROL/IPRATROPIUM 3 ML NEB RESP TX PRN ×2 (04:29→23:10)
[2018-10-28] MEDS: CARBIDOPA/LEVODOPA 25-100 MG TABLET PO SCH ×5 (06:17→18:14)
[2018-10-28] MEDS: DIGOXIN 0.125 MG TABLET PO SCH (09:28)
[2018-10-28] MEDS: TAMOXIFEN 10 MG TABLET PO SCH (09:29)
[2018-10-28] MEDS: METHENAMINE HIPPURATE 1 GM TABLET PO SCH ×2 (09:29→21:08)
[2018-10-28] MEDS: FLECAINIDE 50 MG TABLET PO SCH ×2 (09:29→21:08)
[2018-10-28] MEDS: DOCUSATE SODIUM 100 MG CAPSULE PO SCH ×2 (09:29→21:08)
[2018-10-28] MEDS: TAMSULOSIN 0.4 MG CAPSULE PO SCH (09:29)
[2018-10-28] MEDS: FUROSEMIDE 20 MG TABLET PO SCH (09:29)
[2018-10-28] MEDS: NEUPRO 8 MG/24 HR TOP SCH (09:30)
[2018-10-28] MEDS: ACETAMINOPHEN 325 MG TABLET PO PRN (09:30)
[2018-10-28] MEDS: MELOXICAM 7.5 MG TABLET PO SCH (09:30)
[2018-10-28] MEDS: PANTOPRAZOLE 40 MG TABLET PO SCH (09:30)
[2018-10-28] MEDS: SODIUM CHLORIDE 0.9% 1,000 ML IV SCH (12:35)
[2018-10-28] MEDS: cloNIDine 0.1 MG TABLET PO PRN (13:12)
[2018-10-28] MEDS ORDERED: cloNIDine 0.1 MG TABLET PO ONE (16:59)
[2018-10-28] MEDS: CARBIDOPA/LEVODOPA CR 25-100 MG TABLET PO SCH (21:08)
[2018-10-29] MEDS: MEROPENEM 1,000 MG in SODIUM CHLORIDE 0.9% 100 ML IV SCH ×2 (02:14→15:18)
[2018-10-29] MEDS: ACETAMINOPHEN 325 MG TABLET PO PRN (05:52)
[2018-10-29] MEDS: CARBIDOPA/LEVODOPA 25-100 MG TABLET PO SCH ×5 (05:52→17:59)
[2018-10-29] MEDS: SODIUM CHLORIDE 0.9% 1,000 ML IV SCH ×2 (06:25→22:00)
[2018-10-29] MEDS: TAMOXIFEN 10 MG TABLET PO SCH (10:03)
[2018-10-29] MEDS: FLECAINIDE 50 MG TABLET PO SCH ×2 (10:05→21:02)
[2018-10-29] MEDS: PANTOPRAZOLE 40 MG TABLET PO SCH (10:05)
[2018-10-29] MEDS: MELOXICAM 7.5 MG TABLET PO SCH (10:06)
[2018-10-29] MEDS: FUROSEMIDE 20 MG TABLET PO SCH (10:06)
[2018-10-29] MEDS: DOCUSATE SODIUM 100 MG CAPSULE PO SCH ×2 (10:06→20:59)
[2018-10-29] MEDS: DIGOXIN 0.125 MG TABLET PO SCH (10:06)
[2018-10-29] MEDS: METHENAMINE HIPPURATE 1 GM TABLET PO SCH ×2 (10:07→20:59)
[2018-10-29] MEDS: TAMSULOSIN 0.4 MG CAPSULE PO SCH (10:07)
[2018-10-29] MEDS: prednisoLONE ACETATE 1% OPH SUSP 5 ML BOTTLE BOTH EYES SCH (10:08)
[2018-10-29] MEDS: NEUPRO 8 MG/24 HR TOP SCH (10:08)
[2018-10-29] MEDS: cloNIDine 0.1 MG TABLET PO PRN ×2 (11:07→21:00)
[2018-10-29] MEDS: CARBIDOPA/LEVODOPA CR 25-100 MG TABLET PO SCH (20:59)
[2018-10-30] MEDS: MEROPENEM 1,000 MG in SODIUM CHLORIDE 0.9% 100 ML IV SCH ×2 (02:02→14:18)
[2018-10-30] MEDS: CARBIDOPA/LEVODOPA 25-100 MG TABLET PO SCH ×5 (05:53→18:45)
[2018-10-30] MEDS: cloNIDine 0.1 MG TABLET PO PRN (05:53)
[2018-10-30] MEDS: FLECAINIDE 50 MG TABLET PO SCH ×2 (09:05→23:03)
[2018-10-30] MEDS: MELOXICAM 7.5 MG TABLET PO SCH (09:05)
[2018-10-30] MEDS: PANTOPRAZOLE 40 MG TABLET PO SCH (09:06)
[2018-10-30] MEDS: DIGOXIN 0.125 MG TABLET PO SCH (09:06)
[2018-10-30] MEDS: TAMSULOSIN 0.4 MG CAPSULE PO SCH (09:06)
[2018-10-30] MEDS: FUROSEMIDE 20 MG TABLET PO SCH (09:06)
[2018-10-30] MEDS: METHENAMINE HIPPURATE 1 GM TABLET PO SCH ×2 (09:06→23:02)
[2018-10-30] MEDS: DOCUSATE SODIUM 100 MG CAPSULE PO SCH ×2 (09:06→23:03)
[2018-10-30] MEDS: TAMOXIFEN 10 MG TABLET PO SCH (09:07)
[2018-10-30] MEDS: NEUPRO 8 MG/24 HR TOP SCH (09:07)
[2018-10-30] MEDS: ACETAMINOPHEN 325 MG TABLET PO PRN (14:14)
[2018-10-30] MEDS: SODIUM CHLORIDE 0.9% 1,000 ML IV SCH ×2 (16:55→16:56)
[2018-10-30] MEDS: CARBIDOPA/LEVODOPA CR 25-100 MG TABLET PO SCH (23:03)
[2018-10-31] MEDS: MEROPENEM 1,000 MG in SODIUM CHLORIDE 0.9% 100 ML IV SCH (02:32)
[2018-10-31] MEDS: CARBIDOPA/LEVODOPA 25-100 MG TABLET PO SCH ×2 (06:18→09:22)
[2018-10-31 07:27] VITALS: BP 171/92
[2018-10-31] MEDS: TAMSULOSIN 0.4 MG CAPSULE PO SCH (09:21)
[2018-10-31] MEDS: TAMOXIFEN 10 MG TABLET PO SCH (09:21)
[2018-10-31] MEDS: MELOXICAM 7.5 MG TABLET PO SCH (09:22)
[2018-10-31] MEDS: DOCUSATE SODIUM 100 MG CAPSULE PO SCH (09:22)
[2018-10-31] MEDS: METHENAMINE HIPPURATE 1 GM TABLET PO SCH (09:22)
[2018-10-31] MEDS: FLECAINIDE 50 MG TABLET PO SCH (09:22)
[2018-10-31] MEDS: DIGOXIN 0.125 MG TABLET PO SCH (09:22)
[2018-10-31] MEDS: prednisoLONE ACETATE 1% OPH SUSP 5 ML BOTTLE BOTH EYES SCH (09:23)
[2018-10-31] MEDS: PANTOPRAZOLE 40 MG TABLET PO SCH (09:23)
[2018-10-31] MEDS: FUROSEMIDE 20 MG TABLET PO SCH (09:23)
[2018-10-31] MEDS: NEUPRO 8 MG/24 HR TOP SCH (09:23)
[2018-10-31] MEDS: SODIUM CHLORIDE 0.9% 1,000 ML IV SCH (10:07)
[2018-10-31] MEDS: ACETAMINOPHEN 325 MG TABLET PO PRN (10:20)
[2018-10-31] MEDS: ALBUTEROL/IPRATROPIUM 3 ML NEB RESP TX PRN (10:40)
== END 2018-10-31 11:17 | DRG 690 ==
LOC: N.ED 22:10 → N.EDINP 10-25 00:41 → N.2E 10-25 01:00
PROVIDERS: ADMIT Family Medicine; ATTEND Family Medicine